=== PATIENT | female | born 1990 | race Two or more races ===

== ENCOUNTER 2024-04-13 21:46 | Emergency (ER) | payer OTHER ==
[~2024-04-13] VITALS: Ht 165.1 cm; Wt 71.2 kg
[2024-04-13] MEDS ORDERED: XOLAIR (21:52)
[2024-04-13] MEDS ORDERED: DEXAMETHASONE SODIUM PHOSPHATE 4 MG/ML VIAL IM STA (23:47)
[2024-04-13] MEDS ORDERED: CEFTRIAXONE SODIUM 1,000 MG VIAL IM STA (23:47)
[2024-04-13] MEDS ORDERED: DEXAMETHASONE SODIUM PHOSPHATE 4 MG/ML VIAL ONE (23:51)
[2024-04-13] MEDS ORDERED: ZITHROMAX200 MG PO (23:52)
[2024-04-13] MEDS ORDERED: LIDOCAINE HCL 1% 10ML VIAL ONE (23:52)
[2024-04-13] MEDS ORDERED: CEFTRIAXONE SODIUM 1,000 MG VIAL ONE (23:52)
== END 2024-04-14 00:04 | disposition home or self-care (01) ==
LOC: ER 21:48
DX: J02.9 Acute pharyngitis, unspecified (principal)
CPT/HCPCS: 96372; 99282; J0696; J1100